=== PATIENT | female | born 1985 | race Caucasian/White ===

== ENCOUNTER 2017-05-17 08:49 | Inpatient (IN) | payer BC ==
[2017-05-17] VITALS (21 sets, daily range): BP systolic 96–120; BP diastolic 50–69; PULSE 57–103; TEMP 97.4–98.7
[~2017-05-17] VITALS: Ht 160 cm; Wt 75.0 kg
[~2017-05-17 08:49] MED LIST: MOTRIN 800800 MG/TAB PO; PERCOCET 325 MG1 TA2 PO
[2017-05-17 09:33] LABS: BASO % 0.4 % (0.0-2.0); EOS # 0.1 (0.0-0.7); EOS % 0.6 % (0-4.0); GRAN # 7.5 (1.4-6.5); GRAN % 74.8 % (42.2-75.2); LYMPH # 1.5 (1.2-3.4); LYMPH % 15.2 % (20.0-51.0); MEAN CELL VOLUME 94 fl (80.0-100.0); MEAN CORPUSCULAR HEMOGLOBIN 31 pg (27.0-31.0); MEAN CORPUSCULAR HGB CONC 33 g/dl (33.0-37.0); MEAN PLATELET VOLUME 11.4 fl (7.4-10.4); MONO # 0.8 (0.1-0.6); MONO % 8.1 % (1.7-9.3); PLATELET COUNT 225 K/mm3 (130-400); RED BLOOD COUNT 3.86 M/mm3 (4.10-5.30); REDCELL DISTRIBUTION WIDTH-CV 13.8 % (11.5-14.5)
[2017-05-17 09:34] LABS: HEMATOCRIT 36.4 % (37.0-47.0)
[2017-05-17] MEDS ORDERED: PRENATAL (09:38)
[2017-05-18 04:30] VITALS: BP 90/40; PULSE 66; TEMP 98
[2017-05-18 06:51] LABS: HEMATOCRIT 33.3 % (37.0-47.0); HEMOGLOBIN 10.8 g/dl (12.5-16.0)
[2017-05-18 08:30] VITALS: BP 99/54; PULSE 68; TEMP 97.3
[2017-05-18] MEDS ORDERED: PERCOCET 325 MG1 TA2 PO (08:58)
[2017-05-18] MEDS ORDERED: IBU600 MG PO (08:58)
[2017-05-18 16:45] VITALS: BP 96/63; PULSE 76; TEMP 97.9
[2017-05-18 21:00] VITALS: BP 100/59; PULSE 77; TEMP 97.9
[2017-05-19 07:32] VITALS: BP 96/51; PULSE 62; TEMP 98
== END 2017-05-19 12:45 | disposition home or self-care (01) | DRG 766 ==
LOC: LDRO 08:49 → OB 09:05 → LDR 09:05 → OB 12:15 → LDRO 06-03 14:24
PROVIDERS: Obstetrics & Gynecology
PROC: 10D00Z1 Extraction of Products of Conception, Low, Open Approach (ICD-10-PCS; principal; 2017-05-17)
DX: O42.02 Full-term premature rupture of membranes, onset of labor within 24 hours of rupture (principal); O34.211 Maternal care for low transverse scar from previous cesarean delivery; N85.8 Other specified noninflammatory disorders of uterus; Z3A.37 37 weeks gestation of pregnancy; Z37.0 Single live birth
CPT/HCPCS: J0171; J0690; J1885; J2175; J2370; J2405; J2590; J3010; J7120